=== PATIENT | male | born 1940 | race Caucasian/White ===

== ENCOUNTER → 2017-06-02 | Outpatient (CLI) | payer MEDICARE, OTHER ==
[~2017-06-02] MED LIST: ALLO300T2 PO; ASCO500 PO; ASPI81TA82 PO; LEVO.025 PO; OMEP20TA39 PO; PACE200T4 PO; RENOCAP PO; SEVEL800 PO; VITA200017 PO; WARF2TAB PO; WARF3TAB PO; ZOFR4TAB3 SL; ZOFR8TAB4 SL
[2017-06-02 15:32] LABS: PROTHROMBIN TIME - PATIENT 20.2 SEC (9.8-11.6)
== END ==
LOC: PLAB 13:34
DX: Z79.01 Long term (current) use of anticoagulants (principal)
CPT/HCPCS: 36415; 85610

== ENCOUNTER → 2017-06-29 | Outpatient (CLI) | payer MEDICARE, OTHER ==
[2017-06-29 12:54] LABS: PROTHROMBIN TIME - PATIENT 20.1 SEC (9.8-11.6)
== END ==
LOC: PLAB 11:30
DX: Z79.01 Long term (current) use of anticoagulants (principal)
CPT/HCPCS: 36415; 85610

== ENCOUNTER → 2017-07-26 | Outpatient (CLI) | payer MEDICARE, OTHER ==
[2017-07-26 18:30] LABS: INTERNATIONAL NORMALIZED RATIO 1.7 RATIO; PROTHROMBIN TIME - PATIENT 17.4 SEC (9.8-11.6)
== END ==
LOC: PLAB 15:01
DX: Z79.01 Long term (current) use of anticoagulants (principal)
CPT/HCPCS: 36415; 85610